=== PATIENT | male | born 1980 | race Caucasian/White ===

== ENCOUNTER 2020-08-26 19:00 | Emergency (ER) | payer OTHER ==
[~2020-08-26] VITALS: Ht 175.3 cm; Wt 124.0 kg
[2020-08-26 19:08] VITALS: BP 153/68
--- NOTE | 2020-08-26 19:20 | NUR ---
39 YO M BIB SELF FOR C/O R HIP R KNEE PAIN S/P FALL X 8 HOURS AGO. PT STATES, "I WAS AT WORK AND FELL DOWN." PT HAS STEADY GAIT ABLE TO BEAR WEIGHT, NO GUARDING OR PAIN NOTED @ THIS TIME. SKIN INTACT. NO DISCOLORATION NOTED. YONNYRNEY LOCKED IN LOWEST POSITION. SAFETY PRECAUTIONS IN PLACE. ERMD @ BEDSIDE. HX: DM, HTN AX: SHELLFISH, PCN
[2020-08-26 20:00] VITALS: BP 153/68
--- NOTE | 2020-08-26 20:00 | NUR ---
Patient discharged with v/s stable. Written and verbal after care instructions given and explained. Patient verbalized understanding. Ambulatory with steady gait. All questions addressed prior to discharge. Advised to follow up with PMD.
== END 2020-08-26 20:00 | disposition home or self-care (01) ==
LOC: MED 19:00
DX: M25.561 Pain in right knee (principal); M25.562 Pain in left knee; M25.551 Pain in right hip; Z88.0 Allergy status to penicillin; Z91.013 Allergy to seafood; W18.39XA Other fall on same level, initial encounter; Y93.89 Activity, other specified; Y92.89 Other specified places as the place of occurrence of the external cause; Y99.8 Other external cause status
CPT/HCPCS: 99281